=== PATIENT | female | born 1965 | race Caucasian/White ===

== ENCOUNTER 2019-06-25 06:03 | Emergency (ER) | payer MEDICAID, OTHER, SELFPAY ==
[~2019-06-25] VITALS: Ht 157.5 cm; Wt 59.5 kg
[2019-06-25 06:04] VITALS: BP 139/88
== END 2019-06-25 07:04 | disposition home or self-care (01) ==
LOC: ED 06:38
DX: M79.644 Pain in right finger(s) (principal)
CPT/HCPCS: 99283